=== PATIENT | female | born 1995 | race Caucasian/White ===

== ENCOUNTER 2017-11-26 13:57 | Emergency (ER) | payer BC, MEDICAID ==
[2017-11-26] MEDS ORDERED: Acetaminophen TAB* 325 MG PO ONE (15:04)
[2017-11-26] MEDS ORDERED: Tetan/Diph/Pertus SYR(Tdap)* 0.5 ML SYR(BOOSTRIX) use SYR IM ONE (15:04)
--- NOTE | 2017-11-26 16:17 | ED ---
Skin Complaint - HPI Summary HPI Summary: Lt hand dominant pt here w/ Rt middle finger lac earlier today. Was walking in the kitchen when she slipped and fell, grabbing the edge of the counter nad cutting her finger. Unsure if imms are UTD. Numbness in focal area of lac - otherwise, denies numbness, tingling,weakness. Does not feel she has FB in wound which bled at time of injury -just stopped recently w/ pressure. Has not had anything for pain prior to arrival. CAn't take ibuprofen or she vomits. - History of Current Complaint Chief Complaint: EDLacSutureRecheck Time Seen by Provider: 11/26/17 14:52 Stated Complaint: RT FINGER LAC Hx Obtained From: Patient Hx Last Menstrual Period: 07/28/12 Pain Intensity: 6 - Allergy/Home Medications Allergies/Adverse Reactions: Allergies Allergy/AdvReac Type Severity Reaction Status Date / Time MS Latex [Latex] Allergy Hives Verified 09/24/16 18:33 PMH/Surg Hx/FS Hx/Imm Hx Endocrine/Hematology History: Denies: Hx Diabetes, Hx Thyroid Disease Cardiovascular History: Denies: Hx Hypertension Respiratory History: Denies: Hx Asthma, Hx Chronic Obstructive Pulmonary Disease (COPD) GI History: Denies: Hx Ulcer Musculoskeletal History: Denies: Hx Scoliosis Neurological History: Denies: Hx Headaches, Hx Seizures - self diagnosed "seizure" due to prior episodes of dizziness, passing out., Other Neuro Impairments/Disorders - Surgical History Surgery Procedure, Year, and Place: 2007 - Right knee surgery; plastic - Immunization History Date of Tetanus Vaccine: unsure Infectious Disease History: No Infectious Disease History: Denies: Hx Hepatitis, Hx Human Immunodeficiency Virus (HIV), Traveled Outside the [place] in Last 30 Days - Family History Known Family History: Positive: Cardiac Disease, Diabetes - Social History Alcohol Use: Occasionally Substance Use Type: Reports: None Hx Tobacco Use: Yes Smoking Status (MU): Heavy Every Day Tobacco Smoker Type: Cigarettes Have You Smoked in the Last Year: Yes Physical Exam Vital Signs On Initial Exam: Initial Vitals Temp Pulse Resp BP Pulse Ox 98.7 F 96 20 125/62 98 11/26/17 14:00 11/26/17 14:00 11/26/17 14:00 11/26/17 14:00 11/26/17 14:00 Procedures - Laceration/Wound Repair 1 Location: upper extremity - Rt middle finger, distal pad Description: Irregular - c-shaped w/ jagged edge Anesthesia: Digital, Lido Length, Depth and Shape: 2cm x 3.5mm Betadine Prep?: No Irrigated w/ Saline (ccs): 250 - cleaned with hibaclens and then antiseptic solution Laceration/Wound Explored: clean Closure: Single Layer Suture Type: Nylon - 5-0 Number of Sutures: 5 Layer Closure?: No Sterile Dressing Applied?: Yes - triple anbx ointment + strerile gauze + coban - pt tolerated well Diagnostics - Vital Signs Vital Signs Temp Pulse Resp BP Pulse Ox 11/26/17 14:00 98.7 F 96 20 125/62 98 - Laboratory Lab Statement: Any lab studies that have been ordered have been reviewed, and results considered in the medical decision making process. Course/Dx - Course Course Of Treatment: wound hemodynamically stable - wound care reviewed and danger s/sx of infection. - Diagnoses Provider Diagnoses: Laceration of right middle finger Discharge - Discharge Plan Condition: Stable Disposition: HOME Patient Education Materials: Finger Laceration (ED), Care For Your Stitches (ED ) Referrals: No Primary Care Phys,NOPCP [Primary Care Provider] - Additional Instructions: Keep dressing clean, dry and in place for 48 hours. After this time, you may remove dressing and gently wash the wound with soap and water, pat dry with clean cloth, and reapply triple antibiotic ointment plus clean gauze dressing. Repeat daily. Keep dressing dry and do not soak finger. Follow-up with PCP or return to ED in 10-14 days for wound check and suture removal. *If you develop redness, swelling, streaking, purulent drainage, fever, chills in the meantime, return to the ED.
[2017-11-26 16:37] VITALS: BP 99/48
== END 2017-11-26 16:36 | disposition home or self-care (01) ==
LOC: ED 13:57
DX: S61.212A Laceration without foreign body of right middle finger without damage to nail, initial encounter (principal); W01.198A Fall on same level from slipping, tripping and stumbling with subsequent striking against other object, initial encounter; Y93.01 Activity, walking, marching and hiking; Y92.9 Unspecified place or not applicable; F17.210 Nicotine dependence, cigarettes, uncomplicated; Z23 Encounter for immunization
CPT/HCPCS: 12001; 90471; 90715; 99282; A9270-GY

== ENCOUNTER 2018-01-30 09:50 | Emergency (ER) | payer BC ==
--- NOTE | 2018-01-30 10:30 | ED ---
Abdominal Pain/Female - HPI Summary HPI Summary: Patient is a 22-year-old female presenting to the ED with right-sided abdominal pain without nausea or vomiting. She states she may be . She was to have a gallbladder ultrasound, but was unable to schedule this. Denies any constipation, diarrhea. She arrives today with concern for . Denies any vaginal bleeding or discharge. Last menstrual cycle 5 weeks ago. - History of Current Complaint Chief Complaint: EDAbdPain Stated Complaint: ABD PAIN Time Seen by Provider: 01/30/18 09:57 Hx Obtained From: Patient Hx Last Menstrual Period: 07/28/12 ?: No Onset/Duration: Sudden Onset Timing: Constant Severity Initially: Mild Severity Currently: Mild Pain Intensity: 9 Pain Scale Used: 0-10 Numeric Location: Diffuse Radiates: No Character: Dull Aggravating Factor(s): Other: - cough Alleviating Factor(s): Position Associated Signs and Symptoms: Positive: Negative - Risk Factors Ectopic Risk Factor: Negative Ovarian Torsion Risk Factor: Reproductive Age Allergies/Adverse Reactions: Allergies Allergy/AdvReac Type Severity Reaction Status Date / Time latex Allergy Hives Verified 01/30/18 09:53 Latex, Natural Rubber Allergy Hives Verified 01/30/18 09:53 Home Medications: Home Medications NK [No Home Medications Reported] 01/30/18 [History Confirmed 01/30/18] PMH/Surg Hx/FS Hx/Imm Hx Previously Healthy: Yes Endocrine/Hematology History: Denies: Hx Anticoagulant Therapy, Hx Blood Disorders, Hx Diabetes, Hx Thyroid Disease Cardiovascular History: Denies: Hx Hypertension Respiratory History: Denies: Hx Asthma, Hx Chronic Obstructive Pulmonary Disease (COPD) GI History: Denies: Hx Ulcer Musculoskeletal History: Denies: Hx Scoliosis Neurological History: Denies: Hx Headaches, Hx Seizures - self diagnosed "seizure" due to prior episodes of dizziness, passing out., Other Neuro Impairments/Disorders - Surgical History Surgery Procedure, Year, and Place: 2007 - Right knee surgery; plastic - Immunization History Date of Tetanus Vaccine: unsure Hx Pertussis Vaccination: No Immunizations Up to Date: Unable to Obtain/Confirm Infectious Disease History: No Infectious Disease History: Denies: Hx Hepatitis, Hx Human Immunodeficiency Virus (HIV), Traveled Outside the [place] in Last 30 Days - Family History Known Family History: Positive: Cardiac Disease, Diabetes - Social History Occupation: Unemployed Lives: With Family Alcohol Use: Occasionally Hx Substance Use: No Substance Use Type: Reports: None Hx Tobacco Use: Yes Smoking Status (MU): Current Every Day Smoker Type: Cigarettes Have You Smoked in the Last Year: Yes Review of Systems Constitutional: Negative Negative: Fever, Chills, Fatigue, Skin Diaphoresis Negative: Photophobia, Blurred Vision Negative: Epistaxis, Dental Pain Negative: Palpitations, Chest Pain Negative: Shortness Of Breath, Cough Positive: Abdominal Pain. Negative: Vomiting, Diarrhea Genitourinary: Negative Positive: no symptoms reported, see HPI Negative: Arthralgia, Myalgia Neurological: Negative All Other Systems Reviewed And Are Negative: Yes Physical Exam Triage Information Reviewed: Yes Vital Signs On Initial Exam: Initial Vitals Temp Pulse Resp BP Pulse Ox 97 F 110 14 120/82 100 01/30/18 09:54 01/30/18 09:54 01/30/18 09:54 01/30/18 09:54 01/30/18 09:54 Vital Signs Reviewed: Yes Appearance: Positive: Well-Appearing, Well-Nourished Skin: Positive: Warm, Skin Color Reflects Adequate Perfusion Head/Face: Positive: Normal Head/Face Inspection Eyes: Positive: EOMI, DONELL, Conjunctiva Clear Neck: Positive: Supple, No Lymphadenopathy Respiratory/Lung Sounds: Positive: Clear to Auscultation, Breath Sounds Present Cardiovascular: Positive: RRR, Pulses are Symmetrical in both Upper and Lower Extremities Neurological: Positive: Normal, Sensory/Motor Intact, Alert, Oriented to Person Place, Time, Speech Normal Psychiatric: Positive: Normal, Affect/Mood Appropriate AVPU Assessment: Alert Diagnostics - Vital Signs Vital Signs Temp Pulse Resp BP Pulse Ox 01/30/18 09:54 97 F 110 14 120/82 100 - Laboratory Result Diagrams: 01/30/18 10:22 01/30/18 10:22 Lab Statement: Any lab studies that have been ordered have been reviewed, and results considered in the medical decision making process. Abdominal Pain Fem Course/Dx - Course Course Of Treatment: During the course of treatment, the patient is evaluated for right side body pain. Roberts's sign negative. Rovsing and McBurney's point negative. Began with labs to assess for infectious etiology. Shows thrombocytosis as 622 as well as elevated CRP at 132 with a slightly elevated white count at 12. Discussed the case with Dr. Johns who suggests CT abdomen and pelvis with contrast. I discussed with this patient and she is declining at this time. I have been convinced the patient to add on a d-dimer as she is now complaining of right-sided rib pain, worse with inspiration. I am concerned with a PE as d-dimer is elevated, patient is a smoker and heart rate is 110. PERC score is positive as a low probability but requiring further evaluation. D-dimer> 1050. She again is requesting to be discharged. I have stated she would need to leave AMA. She agrees to the CTA chest/abdomen/pelvis however she is refusing to have oral contrast. CTA chest abdomen pelvis shows: IMPRESSION: No evidence of pulmonary embolus is noted. There is a small amount of perihepatic ascites and some inflammatory change along the. right paracolic gutter. There is a tubular fluid structure arising from the cecum but this. may represents bowel rather than a dilated appendix although evaluation is difficult due. to lack of oral contrast. Right ovarian cyst measuring up to 2.4 cm and a moderate degree. of free fluid is noted in the cul-de-sac. Inflammatory process in the right lower quadrant. is not excluded. A normal appendix could not be identified. I have explained to the patient I continue to be unable to discern if she has an appendicitis. Although, Rovsing and McBurney's point negative. No fever and denies nausea vomiting. This is unlikely. However due to the [id number], I have again advised she stayed for a further evaluation of this, but she prefers to follow- up with GI. I have given her GI consult as well as PUBLIC WOR[employer] DIRECTOR consult for the ovarian cyst. She is signing out AMA at this time. - Diagnoses Differential Diagnosis: Positive: Appendicitis, Bowel Obstruction, Constipation , Ovarian Cyst Provider Diagnoses: Abdominal pain Discharge - Sign-Out/Discharge Documenting (check all that apply): Discharge - Discharge Plan Condition: Stable Disposition: ADMITTED TO [facility] Patient Education Materials: Ovarian Cyst (ED), Acute Abdominal Pain (ED) Referrals: Phillip Wharton MD [Medical Doctor] - Kayce Rodriguez NP [Primary Care Provider] - Leonel Gonzalez MD [Medical Doctor] - Additional Instructions: Please follow-up with Dr. Gonzalez regarding the right side ovarian cyst Please follow-up with Dr. Dio for any worsening abdominal pain If you develop fevers, nausea, acute onset right lower quadrant pain, return to the ED immediately! As discussed, we did not obtain a CT with contrast which will better visualize the appendix Your signing out AGAINST MEDICAL ADVICE for this reason Please follow back up with your physician early this week - Billing Disposition and Condition Condition: STABLE Disposition: [facility]
[2018-01-30 10:31] LABS: ABS Basophils 0.1 10^3/ul (0-0.2); ABS Eosinophils 0.1 10^3/ul (0-0.6); ABS Lymphocytes 1.5 10^3/ul (1.0-4.8); ABS Monocytes 1.3 10^3/ul (0-0.8); ABS Nucleated RBC 0 10^3/ul; Eosinophil % 0.7 % (0-6); Hematocrit 40 % (35-47); Lymphocyte % 12.6 % (25-47); Mean Corpuscular HGB Conc 33 g/dl (31-36); Mean Corpuscular Hemoglobin 29 pg (27-31); Mean Corpuscular Volume 88 fL (80-97); Mean Platelet Volume 6.1 um3 (7.4-10.4); Nucleated Red Blood Cells % 0; Platelet Count 622 10^3/ul (150-450); Red Cell Distribution Width 13 % (10.5-15)
[2018-01-30 10:52] LABS: EGFR Non-African American 110.3 (>60)
[2018-01-30] MEDS ORDERED: Iohexol 300* (CONTRAST) 10 ML SDV IV ONE (11:44)
[2018-01-30] MEDS ORDERED: Iohexol 350* (CONTRAST) 500 ML MDV IV ONE (11:54)
--- NOTE | 2018-01-30 13:05 | RAD ---
Indication: Elevated d-dimer, right-sided abdominal pain. Contrast: Administered 80.0 ml of OMNIPAQUE 350 mg/ml CTA of the chest was performed after IV contrast administration. Coronal and sagittal reconstructed images were obtained. CT of the abdomen and pelvis was performed after IV contrast. No oral contrast was administered. The pulmonary arterial tree is well opacified. There are no filling defects present to suggest pulmonary embolus. The thoracic aorta demonstrates no evidence of aneurysmal dilatation. No evidence of aortic dissection is noted. The trachea and major bronchi appear patent. Lung allred demonstrate no evidence of alveolar consolidation, pleural fluid or nodules or masses. There is no evidence of mediastinal or hilar adenopathy. The esophagus is otherwise unremarkable. The axilla demonstrates no evidence of abnormal adenopathy. CT of the abdomen and pelvis demonstrates liver to be normal in size. No focal lesions or intrahepatic ductal dilatation is noted. The spleen is normal in size. The pancreas demonstrates no mass or pancreatic duct dilatation. No adrenal lesions are noted. The kidneys demonstrate symmetric nephrograms without focal lesions. No retroperitoneal lymphadenopathy is noted. There may be a small amount of perihepatic ascites noted. CT of the pelvis demonstrates no retroperitoneal or pelvic lymphadenopathy. Small bowel demonstrates no evidence of abnormal dilatation. Right ovarian cyst measures up to 2.5 cm. Moderate amount of free fluid. There is a tubular structure arising from the inferior difficult to differentiate between distal ileum versus an appendicitis. Lack of oral contrast makes evaluation difficult and function. Clinical correlation is suggested. A normal appendix is not identified. No pelvic masses are identified. No hernias are identified. IMPRESSION: No evidence of pulmonary embolus is noted. There is a small amount of perihepatic ascites and some inflammatory change along the right paracolic gutter. There is a tubular fluid structure arising from the cecum but this may represents bowel rather than a dilated appendix although evaluation is difficult due to lack of oral contrast. Right ovarian cyst measuring up to 2.4 cm and a moderate degree of free fluid is noted in the cul-de-sac. Inflammatory process in the right lower quadrant is not excluded. A normal appendix could not be identified.
[2018-01-30 13:29] VITALS: BP 112/65
== END 2018-01-30 13:27 | disposition short-term general hospital (02) ==
LOC: ED 09:50
DX: R10.9 Unspecified abdominal pain (principal); F17.210 Nicotine dependence, cigarettes, uncomplicated; N83.201 Unspecified ovarian cyst, right side; Z53.29 Procedure and treatment not carried out because of patient's decision for other reasons
CPT/HCPCS: 36415; 71275; 74177; 80053; 82248; 83605; 84702; 85025; 85379; 86140; 96374; 96376; 99282; Q9967

== ENCOUNTER 2019-01-26 03:25 | Emergency (ER) | payer BC, MEDICAID ==
[2019-01-26] MEDS ORDERED: oxyCODONE/Acetamin 5/325 MG* TAB PO ONE (04:01)
[2019-01-26] MEDS ORDERED: Ibuprofen TAB* 800 MG PO ONE (04:01)
[2019-01-26 04:26] VITALS: BP 121/70
--- NOTE | 2019-01-26 06:14 | ED ---
Complex/Multi-Sys Presentation - HPI Summary HPI Summary: The patient is a 23 year old female who is presenting to the [facility] with a chief complaint of a dental pain. The pain is described to be located "behind the jaw " as per patient reports. She also states the pain radiates to areas such as her ear, eye and her scientology. When asked about the dental pain, the patient states that she has a broken tooth and was concerned about possible infection. The symptoms are aggravated by nothing. The symptoms are alleviated by nothing. Pain is rated to be 10/10 in severity. - History Of Current Complaint Chief Complaint: EDDentalPain Time Seen by Provider: 01/26/19 03:52 Hx Obtained From: Patient Onset/Duration: Still Present Timing: Constant Severity Currently: Severe Severity Initially: Severe Aggravating Factor(s): Nothing Alleviating Factor(s): Nothing Associated Signs And Symptoms: Positive: Other - Pain around ear, eye and scientology. - Allergies/Home Medications Allergies/Adverse Reactions: Allergies Allergy/AdvReac Type Severity Reaction Status Date / Time latex Allergy Hives Verified 01/30/18 09:53 Latex, Natural Rubber Allergy Hives Verified 01/30/18 09:53 PMH/Surg Hx/FS Hx/Imm Hx Endocrine/Hematology History: Denies: Hx Anticoagulant Therapy, Hx Blood Disorders, Hx Diabetes, Hx Thyroid Disease Cardiovascular History: Denies: Hx Hypertension Respiratory History: Denies: Hx Asthma, Hx Chronic Obstructive Pulmonary Disease (COPD) GI History: Denies: Hx Ulcer History: Denies: Hx Renal Disease Musculoskeletal History: Denies: Hx Scoliosis Neurological History: Denies: Hx Headaches, Hx Seizures - self diagnosed "seizure" due to prior episodes of dizziness, passing out., Other Neuro Impairments/Disorders - Surgical History Surgery Procedure, Year, and Place: 2007 - Right knee surgery; plastic - Immunization History Date of Tetanus Vaccine: unsure Infectious Disease History: No Infectious Disease History: Denies: Hx Hepatitis, Hx Human Immunodeficiency Virus (HIV), Traveled Outside the [place] in Last 30 Days - Family History Known Family History: Positive: Cardiac Disease, Diabetes - Social History Occupation: Student Alcohol Use: Occasionally Hx Substance Use: No Substance Use Type: Reports: None Substance Use Comment - Amount & Last Used: daily Hx Tobacco Use: Yes Smoking Status (MU): Current Every Day Smoker Type: Cigarettes Have You Smoked in the Last Year: Yes Review of Systems Constitutional: Negative Eyes: Negative Positive: Dental Pain - "Broken Tooth" Cardiovascular: Negative Respiratory: Negative Gastrointestinal: Negative Genitourinary: Negative Musculoskeletal: Other - Jaw pain. Positive: Other - Pain radiating to the eyes, ears and scientology. Skin: Negative Neurological: Negative Psychological: Normal All Other Systems Reviewed And Are Negative: Yes Physical Exam - Summary Physical Exam Summary: VITAL SIGNS: Reviewed. GENERAL: Patient is a well-developed and nourished (FEMALE) who is lying comfortable in the stretcher. Patient is not in any acute respiratory distress. HEAD AND FACE: No signs of trauma. No ecchymosis, hematomas or skull depressions. No sinus tenderness. EYES: PERRLA, EOMI x 2, No injected conjunctiva, no nystagmus. EARS: Hearing grossly intact. Ear canals and tympanic membranes are within normal limits. MOUTH: Broken lost upper molar without rounding inflammatory changes. NECK: Supple, trachea is midline, no adenopathy, no JVD, no carotid bruit, no c- spine tenderness, neck with full ROM. CHEST: Symmetric, no tenderness at palpation LUNGS: Clear to auscultation bilaterally. No wheezing or crackles. CVS: Regular rate and rhythm, S1 and S2 present, no murmurs or gallops appreciated. ABDOMEN: Soft, non-tender. No signs of distention. No rebound no guarding, and no masses palpated. Bowel sounds are normal. EXTREMITIES: FROM in all major joints, no edema, no cyanosis or clubbing. NEURO: Alert and oriented x 3. No acute neurological deficits. Speech is normal and follows commands. SKIN: Dry and warm Triage Information Reviewed: Yes Vital Signs On Initial Exam: Initial Vitals Temp Pulse Resp BP Pulse Ox 98.6 F 71 16 138/73 98 01/26/19 03:56 01/26/19 03:56 01/26/19 03:56 01/26/19 03:56 01/26/19 03:56 Vital Signs Reviewed: Yes Diagnostics - Vital Signs Vital Signs Temp Pulse Resp BP Pulse Ox 01/26/19 04:25 98.6 F 70 17 121/70 99 01/26/19 04:12 18 01/26/19 03:56 98.6 F 71 16 138/73 98 - Laboratory Lab Statement: Any lab studies that have been ordered have been reviewed, and results considered in the medical decision making process. Complex Multi-Symp Course/Dx Course Of Treatment: The patient is a 23 year old female who is presenting to the [facility] with a chief complaint of dental pain. The pain resonates around her jaw, eyes, ears and scientology as per patient report. The physical examination reveals a broken molar in the upper region of the mouth and no inflammatory changes. The patient will be discharged home with a dx of dental pain and broken tooth. We recommended a follow up with the dentist within 1 to 2 days. - Diagnoses Provider Diagnoses: Pain, dental, Broken tooth Discharge - Sign-Out/Discharge Documenting (check all that apply): Patient Departure - Discharge Home Patient Received Moderate/Deep Sedation with Procedure: No - Discharge Plan Condition: Stable Disposition: HOME Prescriptions: Ibuprofen TAB* [Motrin TAB* 800 MG] 800 mg PO Q6H PRN #30 tab PRN Reason: Pain Patient Education Materials: Toothache (ED) Referrals: Kayce Rodriguez, COPY CHIEF [Primary Care Provider] - Additional Instructions: RETURN TO THE EMERGENCY DEPARTMENT FOR CHANGING OR WORSENING SYMPTOMS. FOLLOW UP WITH YOUR DENTIST WITHIN ONE TO TWO DAYS - Attestation Statements Document Initiated by Shaniaibe: Yes Documenting Scribe: Trae Diego Provider For Whom Scribe is Documenting (Include Credential): Dr. Shakira Jaureguiibjacquie Attestation: Trae Romo scribed for Dr. Lacey Martinez on 01/26/19 at 0621. Status of Scribe Document: Ready
== END 2019-01-26 04:25 | disposition home or self-care (01) ==
LOC: ED 03:25
DX: K08.89 Other specified disorders of teeth and supporting structures (principal); S02.5XXA Fracture of tooth (traumatic), initial encounter for closed fracture; F17.210 Nicotine dependence, cigarettes, uncomplicated; X58.XXXA Exposure to other specified factors, initial encounter; Y92.9 Unspecified place or not applicable
CPT/HCPCS: 99282; A9270-GY

== ENCOUNTER 2019-09-20 19:39 | Emergency (ER) | payer BC, MEDICAID ==
--- OUTSIDE RECORDS SUMMARY | 2019-09-20 20:06 | XMS REPORT | Continuity of Care Document ---
:1995 Author Organization [facility] Address [address] [place] [address] Phone Care Team Providers Name Role Phone Enrique OFFICE CLERK ASSISTANTJanene Unavailable Unavailable Allergies, Adverse Reactions, Alerts Substance Reaction Status latex Hives/Skin Rash Active ibuprofen Nausea/Vomiting Active Medications Medication Instructions Dosage Effective Dates Status Comments (start - stop) azithromycin 500 mg Take 2 tabs PO now - Active tablet Nexplanon 68 mg Insert in clinic - Active subdermal implant Problems Condition Effective Dates (start - Clinical Status Comments stop) Chlamydial infection, unspecified Encounter for test, result negative Encntr screen for infections w sexl mode of transmiss Enctr for init prescription of implntbl subdermal contracep Encounter for initial prescription of contraceptive pills Encounter for test, result negative Enctr srvlnc implantable subdermal contraceptive Encounter for test, result negative Enctr for init prescription of implntbl subdermal contracep Encounter for test, result negative Human immunodeficiency virus [HIV] - counseling Encounter for elective termination of Less than 8 weeks gestation of Enctr for init prescription of implntbl subdermal contracep Encounter for elective termination of Human immunodeficiency virus [HIV] - counseling Encounter for test, result positive Body mass index (BMI) 27.0-27.9, adult Encounter for oth general cnsl and advice on contraception Encntr screen for infections w sexl mode of transmiss Less than 8 weeks gestation of PT, Negative RhD positive - Active Procedures Procedure Date No information Results Test Name Date and Time Measure Units Reference Range Abnormal Flag Status Comments No information Advance Directives Directive Yes / No Effective Date File Name No information Encounters Encounter Practice Location Reason(s) Diagnoses Date Provider Providers Description For Visit Copied on Encounter [facility]ydial [facility] [place] infection, Janene. [address] unspecified [address], [place], [place], [place], [address]. [address] tel:[phone] St, [place], [address] [place], [id number], [place] tel:[phone] [facility] Encounter for Christina Referring [facility] [place] test, Saniya. 620 Provider: Southern result [address], Saniya [place] negativeEncntr [place], Christina J, 620 [facility], [facility] [place] [address], [place]. [address] [place] infections w tel:[phone] St, [place], St, [place] [address] [place], [address]. [place], transmissEnctr tel:[phone], for init [id number] [place] prescription of tel:[phone] implntbl [phone] subdermal contracep [facility] [place] initial 3 Diana. [address] W Provider: [place] prescription of [address], Diana [place] contraceptive [place], Raphaelidis [facility], 620 pills [address]. , [address] tel:[phone] [address], St, [place], [address] [place], [address]. [id number], tel:[phone] [place] [phone] tel:[phone] [facility] February- White Brittney. [facility] [place] 0-201 [address], [place], [place], [address], [place], [address] [place], [place], [id number], [place] tel:[phone] [facility] Encounter for Jan-2 Parete Referring [facility] [place] test, 6-201 Janene. 620 W Provider: [place] result negative [address], Janene [place], Parete, 620 [place], 620 [address]. [address] [place] tel:[phone] St, [place], St, [place], [address] [place], [address]. [place], tel:[phone], 754527 [place] tel:[phone] [facility] Enctr srvlnc Apr-1 White Brittney. Referring [facility] [place] implantable 0-201 [address] Provider: [place] subdermal 9 [address], [place], [place], [address], [place], 620 [place], 620 [place]. [address], [place], [place], [place], [address]. [place], [id number], [place] tel:[phone] [facility] Encounter for Apr- Parete Referring [facility] [place] test, 7-201 Janene. 620 W Provider: [place] result [address], Janene [place] negativeEnctr [place], [facility], 620 [facility], 620 for init [address]. [place] prescription of tel:+[phone] St, [place], St, [place], [place] [address] [place], [address]. [place], subdermal tel:[phone], contracep [phone] [place] tel:[phone] [facility] Encounter for Apr-0 Rhina Referring [facility] [place] test, 5-201 Sophia. 620 W Provider: [place] result [address], Sophia [place] negativeHuman [place], [place], Rhina [facility], 620 immunodeficienc [address]. M, [address] y virus [HIV] tel:[phone], St, [place], counseling [address] [facility] [place], [address]. [id number], tel:[phone] [place] [phone] tel:[phone] [facility] Encounter for Dec-0 Angie Referring [facility] [place] elective 8-201 Ella. 620 W Provider: [place] termination of [address], Ella [place] pregnancyLess [place], [place], Angie R, [facility], 620 than 8 weeks [address]. [address] gestation of tel:+[phone], [facility] [place], pregnancyEnctr [address] [place], [place], [place], for init [address]. [id number], prescription of tel:[phone] [place] implntbl 295319 tel:[phone] subdermal [phone] contracep [facility] Encounter for Renaldo Lugo. [facility] [place] elective [address] termination of 7 , [place], [place], [address], [place], 620 [place]. [address] , [place], [place], [id number], [place] tel:[phone] [facility] Human Renaldo Lugo. [facility] [place] immunodeficienc 0-201 [address] [facility] virus [[facility]] 7 , [place], [place], [address], [facility], 620 nter for [place]. [address] [place] test, [facility], [place], result [place], positiveBody [id number], mass index [place] (BMI) tel:[phone] 27.0-27.9, [phone] adultEncounter for oth general cnsl and advice on contraceptionEn cntr screen for infections w sexl mode of transmissLess than 8 weeks gestation of [facility] PT, Negative [employer] [facility] [place] 6201 Lana. 620 W Provider: [address], NURSE [place], [place], [facility]. [place] [address]. [address] [place] tel:+[phone] , [place], [address] [place], [id number], [place] tel:[phone] Family History Family Member Diagnosis Age At Onset 1st degree relative No hx of cancer of breast, colon, endometrium or ovary 1st degree relative No hx of venous thromboembolism 1st degree relative No hx of coronary heart disease (female <65, male <55) Immunizations Vaccine Date Status Comments HPV, unspecified formulation administered Note: [place] CONFIRMED ; Source: Public Agency Payers Payer name Insurance type Covered green party ID Authorization(s) [facility] [id number] Medicaid [place] [id number] Social History Type Description Quantity Date Captured Comments Alcohol Use Details Unknown Caffeine Use Details Unknown Tobacco Use Status Smoking Status Heavy tobacco smoker Sex Female Vital Signs Date / Height Weight BMI Pulse Blood Temperature Respiratory Body Head BMI Pulse Inhaled Time: Rate Pressure Rate Surface Circumference percentile [place] No information Chief Complaint And Reason For Visit No information Reason For Referral Reason For Referral No information Plan Of Treatment Date Type Action Status Goal Tobacco cessation counseling completed Goal Tobacco cessation counseling completed Goal Tobacco cessation counseling completed Appointment CHEO SHANNON BOOKED History Of Present Illness Encounter Date Complaint History Of Present Illness No information Functional Status Date Functional Assessment No information Medications Administered Medication Instructions Dosage Effective Dates (start - stop) Status Comments No information Instructions Date Instruction Additional Information No information Assessments Type Assessment Date assessment Chlamydial infection, unspecified Goals Health Concern Goal Type Priority Status Date No information Medical Equipment Description Device [place] Device Identifier Effective Dates (start - stop ) Status No information Mental Status Date Cognitive Assessment No information Health Concerns Observation Date No information Concern Status Date No information
--- OUTSIDE RECORDS SUMMARY | 2019-09-20 20:06 | XMS REPORT | Continuity of Care Document ---
:1995 Author Organization [facility] Address [address] [place] [address] Phone Care Team Providers Name Role Phone Maggie Stokes Unavailable Unavailable Allergies, Adverse Reactions, Alerts Substance [...] For Visit Copied on Encounter [facility] Nov-0 [facility] [place]. [address], [place], [place], [facility], 620 [address], [place]. [place] tel:[phone] St, [place], [address] [place], [id number], [place] tel:[phone] [facility] Chlamydial Nov-0 [facility]te [facility] [place] infection, Janene. [address] unspecified [address], [place], [place], [facility], 620 [address]. [address] [place] tel:[phone] St, [place], [address] [place], [id number], [place] tel:[phone] [facility] Encounter for Christina Referring [facility] [place] test, Saniya. 620 Provider: [place] result [address], Saniya [place] negativeEncntr [place], [place], Christina J, 620 [facility], 620 [place] [address], [place]. [address] [place] [place] [address] infections w tel:[phone] St, [place], St, [place] [address] [place], [address]. [place], transmissEnctr tel:[phone], for init 828037 [place] prescription of tel:[phone] implntbl [phone] subdermal contracep [facility] [place] initial Diana. 620 W Provider: [place] prescription of [address], Diana [place] contraceptive [place], Raphaelidis [facility], 620 pills [address]. , [address] tel:[phone], St, [place], [address] [place], [address]. [id number], tel:[phone] [place] [phone] tel:[phone] [facility] February- Renaldo Lugo. [facility] [place] 0-201 [address], [place], [place], [address], [place], [address] [place], [place], [place], [id number], [place] tel:[phone] [facility] Encounter for Jan- Parete Referring [facility] [place] test, [employer]. 620 W Provider: [place] result negative [address], Janene [place], [place], Parete, 620 [place], 620 [address]. [address] [place] [place] tel:[phone] St, [place], St, [place], [address] [place], [address]. [place], tel:[phone], 860[address] [place] tel:[phone] [facility] Enctr srvlnc Renaldo Lugo. Referring [facility] [place] implantable 0- 620 [address] Provider: [place] subdermal [address], [place], [place], [address], White, 620 [place], 620 [place]. [address] [place], [place], St, [place], [address]. [place], [id number], [place] tel:[phone] [facility] Encounter for Parete Referring [facility] [place] test, [employer]. 620 W Provider: [place] result [address], Janene [place] negativeEnctr [place], [facility], 620 [facility], [facility] for init [address]. [address] [place] [place] [address] [place] prescription of tel:[phone] St, [place], St, [place], [place] [address] [place], [address]. [place], subdermal tel:[phone], contracep 816084 [place] tel:[phone] [facility] Encounter for Jan-0 Rhina Referring [facility] [place] test, 5 Sophia. 620 W Provider: [place] result [address], Sophia [place] negativeHuman [place], Rhina [place], 620 immunodeficienc [address]. M, [address] y virus [HIV] tel:+[phone] [address], St, [place], counseling [address] [place], [address]. [id number], tel:[phone] [place] [phone] tel:[phone] [facility] Encounter for Dec-0 Angie Referring [facility] [place] elective 8- Ella. 620 W Provider: [facility] termination of [address], Ella [place] pregnancy[place], [place], Mitch Hansen, [facility] than 8 weeks [address]. [address] gestation of tel:[phone], , [place], pregnancyEnctr [address] [place], [place], [place], for init [address]. [id number], prescription of tel:+[phone] [place] implntbl 229417 tel:[phone] subdermal [phone] contracep [facility] Encounter for Sep-0 Renaldo Lugo. [facility] [place] elective 7 [address] termination of 7 [address], [place], [place], [address], [facility], [address] [place], [place], [id number], [place] tel:[phone] [facility] Human Nov-3 Renaldo Lugo. [facility] [place] immunodeficienc 0-201 [address] y virus [HIV] 7 , [place], [place], [address], [facility], 620 nter for [place]. [address] test, , [place], result [place], positiveBody [id number], mass index [place] (BMI) tel:[phone] 27.0-27.9, 358803 adultEncounter for oth general cnsl and advice on contraceptionEn cntr screen for infections w sexl mode of transmissLess than 8 weeks gestation of [facility] PT, Negative Tyrese- [employer] [facility] [place] 6- Lana. 620 W Provider: [facility] [address], NURSE [place], [place], [facility]. [facility], [facility] [address]. [address] [place] [place] tel:+[phone] St, [place], [address] [place], [id number], [place] tel:[phone] Family History Family Member Diagnosis Age At [...] Insurance type Covered green party ID Authorization(s) [facility] [id number] Medicaid MC [id number] Social History Type Description Quantity Date Captured [...] Information No information Assessments Type Assessment Date No information Goals Health Concern Goal Type Priority Status Date No information Medical Equipment Description Device [place] Device Identifier Effective Dates (start - stop ) Status No information Mental Status Date Cognitive Assessment No information Health Concerns Observation Date No information Concern Status Date No information
--- OUTSIDE RECORDS SUMMARY | 2019-09-20 20:06 | XMS REPORT | Continuity of Care Document ---
:1997 Author Organization 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 Unavailable Unavailable Allergies, Adverse Reactions, Alerts Substance Reaction Status latex Hives/Skin Rash Active ibuprofen Nausea/Vomiting Active Medications Medication Instructions Dosage Effective Dates Status Comments (start - stop) Nexplanon 68 mg Insert in clinic - Active subdermal implant azithromycin 500 mg 2 tabs po x 1 for - No Longer tablet infection Active Problems Condition Effective Dates (start - Clinical Status Comments stop) Encntr screen for infections w sexl mode of transmiss Chlamydial infection, unspecified Human immunodeficiency virus [HIV] - counseling Encounter for screening for human - immunodeficiency virus Chlamydial infection, unspecified Encounter for test, result [...] mass index (BMI) 27.0-27.9, adult Encounter for ot general cnsl and advice on contraception Encntr [...] For Visit Copied on Encounter [facility] [place] Brittney. [facility] [place] 0-201 [address], [place], [place], [address], [place], [address], [place], [place], [id number], [place] tel:[phone] [facility] Encntr screen [facility] 6 Diana. 620 W Provider: [facility] w sexl mode of [address], Diana [place] transmissChlamy [place], [place], Raphaelidis [facility], 620 dial infection, [address]. , [address] unspecifiedHuma tel:[phone], [place], [place] [address] [place], [place], [place], immunodeficienc [address]. [id number], y virus [HIV] tel:[phone] [place] counselingEncou 861847 tel:[phone] nter for 924165 screening for human immunodeficienc y virus [facility] Chlamydial Nov0 P[facility]te [facility] [place] infection, 5 Janene. [address], [place], [place], [place], [address]. [address] [place] tel:[phone] St, [place], [address] [place], [id number], [place] tel:[phone] [facility] Encounter for Christina [facility], [facility]-201 Saniya. 620 Provider: [place] result [address], Saniya [place] negativeEncntr [place], [place], Christina J, 620 [place], 620 [place] for [address], [place]. [address] [place] infections w tel:[phone] St, [place], St, [place], [place] [address] [place], [address]. [place], transmissEnctr tel:[phone], for init 879811 [place] prescription of tel:[phone] implntbl [phone] subdermal contracep [facility] Encounter for Raphaelidis Referring [facility] [place] initial 3-201 Diana. 620 W Provider: [place] prescription of [address], Diana [place] contrace[place], Raphaelidis [place], 620 pills [address]. , [address] [place] tel:[phone], St, [place], [address] [place], [address]. [id number], tel:[phone] [place] 583668 tel:[phone] [facility] February- Renaldo Lugo. [facility] [place] 0-201 [address], [place], [place], [address], [place], [address], [place], [place], [id number], [place] tel:[phone] [facility] Encounter for Jan- Parete Referring [facility] [place] test, [employer]. 620 W Provider: [facility] result negative [address], Janene [place], [place], Parete, 620 [place], 620 [address]. [address] [place] [address] [place] tel:+[phone] St, [place], St, [place], [address] [place], [address]. [place], tel:[phone], [address] [place] tel:[phone] [facility] Enctr srvlnc Apr- Renaldo Lugo. Referring [facility] [place] implantable 0-201 [address] Provider: [place] subdermal 9 [address], [place], [place], [address], White, 620 [place], 620 [place]. [address], [place], [place], [place], [address]. [place], [id number], [place] tel:[phone] [facility] Encounter for Parete Referring [facility] [place] test, 7-201 Janene. 620 W Provider: [place] result [address], Janene [place] negativeEnctr [place], [place], Parete, 620 [place], 620 for init [address]. [address] [place] prescription of tel:[phone] St, [place], St, [place], [place] [address] [place], [address]. [place], subdermal tel:[phone], contracep [phone] [place] tel:[phone] [facility] Encounter for Apr-0 Rhina Referring [facility] [place] test, 5-201 Sophia. 620 W Provider: Southern result [address], Sophia [place] negativeHuman [place], [place], Rhina [facility], 620 immunodeficienc [address]. M, [address] y virus [HIV] tel:[phone] St, [place], counseling [address] [place], [address]. [id number], tel:[phone] [place] 371774 tel:[phone] [facility] Encounter for Dec-0 Angie Referring [facility] [place] elective 8-201 Ella. 620 W Provider: [place] termination of [address], Ella [place] pregnancyLess [place], Angie R, [facility], 620 than 8 weeks [address]. [address] [address] gestation of tel:[phone], St, [place], pregnancyEnctr [address] [place], [place], [place], [place] init [address]. [id number], prescription of tel:[phone] [place] implntbl 873915 tel:[phone] subdermal [phone] contracep [facility] Encounter for Dec-0 White Brittney. [facility] [place] elective 7-201 [address] termination of [address], [place], [place], [address], [place], [address], [place], [place], [id number], [place] tel:[phone] [facility] Human Nov-3 White Brittney. [facility] [place] immunodeficienc 0-201 [address] y virus [HIV] 7 St, [place], [place], [address], [place], 620 nter for [place]. [address] test, St, [place], result [place], positiveBody [id number], mass index [place] (BMI) tel:+[phone] 27.0-27.9, 193146 adultEncounter for oth general cnsl and advice on contraceptionEn cntr screen for infections w sexl mode of transmissLess than 8 weeks gestation of [facility] PT, Negative [employer] [facility] [place] 6-201 Lana. 620 W Provider: [address], [place]SE [place], [place], [facility]. [place], 620 [address]. [address] [place] tel:+[phone] , [place], [address] [place], [id number], [place] tel:[phone] Family History Family Member Diagnosis Age At [...] Agency Payers Payer name Insurance type Covered libertarian ID Authorization(s) [facility] [id number] Medicaid MC [id number] Social History Type Description Quantity Date Captured [...] counseling completed Goal Tobacco cessation counseling completed History Of Present Illness Encounter Date Complaint History Of Present Illness No information Functional Status Date Functional Assessment No information Medications Administered Medication Instructions Dosage Effective Dates (start - stop) Status Comments No information Instructions Date Instruction Additional Information No information Assessments Type Assessment Date No information Goals Health Concern Goal Type Priority Status Date No information Medical Equipment Description Device [place] Device Identifier Effective Dates (start - stop ) Status No information Mental Status Date Cognitive Assessment No information Health Concerns Observation Date No information Concern Status Date No information
--- OUTSIDE RECORDS SUMMARY | 2019-09-20 20:06 | XMS REPORT | Continuity of Care Document ---
:[address] [facility] Address [address] [place] [address] Phone Care Team Providers Name Role Phone Saniya Vasquez NP Unavailable Unavailable Allergies, Adverse Reactions, Alerts Substance Reaction Status latex Hives/Skin Rash Active ibuprofen Nausea/Vomiting Active Medications Medication Instructions Dosage Effective Dates Status Comments (start - stop) Nexplanon 68 mg Insert in clinic - Active subdermal implant Jolessa 0.15 take 1 tablet by 1.00 tablet - No Longer mg-30 mcg oral route every Active tablets,3 month day dose pack Problems Condition Effective Dates (start - Clinical Status Comments stop) Encounter for test, result negative Encntr screen [...] RhD positive - Active Procedures Procedure Date URINE TEST IMPLANON/NEXPLANON INSERT DRUG IMPLANT DEVICE N.GONORRHOEAE, DNA, AMP PROB CHYLMD DNA, AMP PROBE BLOOD PRESSURE Height/Weight Contraceptive Surveillance Officer.Svc. Other Surveillance Officer.Svc. STI Results Test Name Date and Time Measure Units Reference Range Abnormal Flag Status Comments Panel Description: High Sensitivity Urine Test Final High Sensitivity Urine 13:40:13 NegativeInternal Quality Final Test Control: Positive Advance Directives Directive Yes / No Effective Date File Name No information Encounters Encounter Practice Location Reason(s) Diagnoses Date Provider Providers Description For Visit Copied on Encounter [facility] Encounter for [facility] [place] Insertion test, Saniya. 620 Provider : [facility] (chief result [address], Saniya [place] complaint) negativeEncntr [place], Christina J, [address] [place], 620 [place] [address], [place]. [place] infections w tel:[phone] St, [place], St, [place], [place] [address] [place], [address]. [place], transmissEnctr tel:[phone], for init 833277 [place] prescription of tel:[phone] implntbl [phone] subdermal contracep [facility] Encounter for Raphbill [facility]erring [facility] [place] initial 3201 Diana. 620 W Provider: [place] prescription of [address], Diana [place] contraceptive [place], [place], Raphaelyolanda [facility], 620 pills [address]. , [address] tel:[phone], St, [place], [address] [place], [place], [address]. [id number], tel:[phone] [place] 366914 tel:[phone] [facility] February- Renaldo Lugo. [facility] [place] 0-201 [address], [place], [place], [address], [place], [address], [place], [place], [id number], [place] tel:[phone] [facility] Encounter for Jan-2 Parete [facility]erring [facility] [place] test, 6 Janene. 620 W Provider: [place] result negative [address], Janene [place], [place], Parete, 620 [place], 620 [address]. W [place] W [place] tel:[phone] St, [place], St, [place], [address] [place], [address]. [place], tel:[phone], [phone] [place] tel:[phone] [facility] Enctr srvlnc Renaldo Lugo. Referring [facility] [place] implantable 0-201 [address] Provider: Southern subdermal [address], [place], [place], [address], White, 620 [place], [address] [place], [place], St, [place], [address]. [place], [id number], [place] tel:[phone] [facility] Encounter for Apr- Parete [facility]erring [facility] [place] test, [employer]. 620 W Provider: [place] result [address], Janene [place] negativeEnctr [place], [place], [facility], 620 [facility], 620 for init [address]. W [place] prescription of tel:[phone] St, [place], St, [place], [place] [address] [place], [address]. [place], subdermal tel:[phone], contracep [phone] [place] tel:[phone] [facility] Encounter for Apr-0 Rhina [facility]erring [facility] [place] test, 5 Sophia. 620 W Provider: [place] result [address], Sophia [place] negativeHuman [place], [place], Rhina [place], 620 immunodeficienc [address]. M, [address] y virus [HIV] tel:[phone], St, [place], counseling [address] [place], [address]. [id number], tel:[phone] [place] [phone] tel:[phone] [facility] Encounter for Dec-0 Angie Referring [facility] [place] elective 8 Ella. 620 W Provider: [facility] termination of [address], Ella [place] pregnancyLess [place], [place], Angie R, [facility], 620 than 8 weeks [address]. [address] gestation of tel:[phone], [facility], pregnancyEnctr [address] [place], [place], [place], for init [address]. [id number], prescription of tel:[phone] [place] implntbl [phone] tel:[phone] subdermal [phone] contracep [facility] Encounter for Sep-0 Renaldo Lugo. [facility] [place] elective [address] [place] termination of [address], [place], [place], [address], [facility], [address], [place], [place], [id number], [place] tel:[phone] [facility] Human Nov-3 Renaldo Lugo. [facility] [place] immunodeficienc 0-201 [address] [place] y virus [HIV] 7 , [place], [place], [address], [facility], 620 nter for [place]. W [place] test, , [place], result [place], positiveBody [id number], mass index [place] (BMI) tel:[phone] 27.0-27.9, [phone] adultEncounter for oth general cnsl and advice on contraceptionEn cntr screen for infections w sexl mode of transmissLess than 8 weeks gestation of [facility] PT, Negative [employer] [facility] [place] 6-201 Lana. 620 W Provider: [facility] [address], NURSE [place], [place], [facility]. [place] [address]. W [place] tel:[phone] St, [place], [address] [place], [id number], [place] tel:[phone] Family History Family Member Diagnosis Age At [...] Agency Payers Payer name Insurance type Covered alliance party ID Authorization(s) BCBS [facility] [id number] Medicaid [id number] Social History Type Description Quantity Date Captured Comments Alcohol Use Details Unknown Caffeine Use Details Unknown Tobacco Use Status Smoking Status Heavy tobacco smoker Sex Female Vital Signs Date / Height Weight BMI Pulse Blood Temperature Respiratory Body Head BMI Pulse Inhaled Time: Rate Pressure Rate Surface Circumference percentile Ox Ox Area 64.00 165.00 28.3 in lbs 2 mm[Hg] 1:30 kg/m PM eter (2) Chief Complaint And Reason For Visit Most recent encounter only, dated '08/10/2019 13:00'. Implant Insertion ( chief complaint) Reason For Referral Reason For Referral No [...] No information Assessments Type Assessment Date assessment Encounter for test, result negative assessment Encntr screen for infections w sexl mode of transmiss assessment Enctr for init prescription of implntbl subdermal contracep Goals Health Concern Goal Type Priority Status Date No information Medical Equipment Description Device [place] Device Identifier Effective Dates (start - stop ) Status No information Mental Status Date Cognitive Assessment No information Health Concerns Observation Date No information Concern Status Date No information
--- OUTSIDE RECORDS SUMMARY | 2019-09-20 20:06 | XMS REPORT | Continuity of Care Document ---
:[address] [facility] Address [address] [place] [address] Phone Care Team Providers Name Role Phone Saniya Vasquez NP Unavailable Unavailable Allergies, Adverse Reactions, Alerts Substance Reaction Status latex Hives/Skin Rash Active ibuprofen Nausea/Vomiting Active Medications Medication Instructions Dosage Effective Dates (start Status Comments - stop) Nexplanon 68 mg Insert in [...] For Visit Copied on Encounter [facility] [place] 4-201 Saniya. 620 Southern [address], [place], [place], [place], 620 [address], [place]. [place] tel:[phone] St, [place], [address] [place], [id number], [place] tel:[phone] [facility] Encounter for Christina [facility]erring [facility] [place] test, Saniya. 620 Provider: [place] result [address], Saniya [place] negativeEncntr [place], [place], Christina J, 620 [place], 620 [place] [address], [place]. [place] infections w tel:[phone] St, [place], St, [place], [place] [address] [place], [address]. [place], transmissEnctr tel:[phone], for init 778817 [place] prescription of tel:[phone] implntbl [phone] subdermal contracep [facility] Encounter for Raphjamesidis Referring [facility] [place] initial 3 Diana. 620 W Provider: [place] prescription of [address], Diana [place] contraceptive [place], [place], Raphaelidis [facility], 620 pills [address]. , [address] W [address] [place] tel:[phone], St, [place], [address] [place], [address]. [id number], tel:[phone] [place] 002013 tel:[phone] [facility] February- White Brittney. [facility] [place] 0-201 [address] [place] [address], [place], [place], [address], [place], [address] [place], [place], [place], [id number], [place] tel:[phone] [facility] Encounter for Jan- Parete Referring [facility] [place] test, Janene. 620 W Provider: Southern result negative [address], Janene [place], [place], Parete, 620 [place], 620 [address]. [address] [place] tel:[phone] St, [place], St, [place], [address] [place], [address]. [place], tel:[phone], 55[address] [place] tel:[phone] [facility] Enctr srvlnc Apr- White Brittney. Referring [facility] [place] implantable 0-201 620 [address] [place] Provider: Southern subdermal 9 [address], [place], [place], [address], White, 620 [place], 620 [place]. [address] [place] [address], [place], [place], [place], [address]. [place], [id number], [place] tel:[phone] [facility] Encounter for Parete Referring [facility] [place] test, 7-201 Janene. 620 W Provider: [place] result [address], Janene [place] negativeEnctr [place], [facility] 620 [facility], 620 for init [address]. W [place] prescription of tel:[phone] St, [place], St, [place], [place] [address] [place], [address]. [place], subdermal tel:[phone], contracep 254198 [place] tel:[phone] [facility] Encounter for Apr-0 Rhina Referring [facility] [place] test, 5-201 Sophia. 620 W Provider: [place] result [address], Sophia [place] negativeHuman [place], [place], Rhina [facility], 620 immunodeficienc [address]. M, 620 W [address] [place] y virus [HIV] tel:[phone] [place] [address] [place] [address], St, [place], counseling [address] [place], [address]. [id number], tel:[phone] [place] [phone] tel:[phone] [facility] Encounter for Dec-0 Angie Referring [facility] [place] elective 8-201 Ella. 620 W Provider: [place] termination of [address], Ella [place] pregnancyLess [place], [place], Angie Martinez [facility], [facility] than 8 weeks [address]. 620 W [address] [place] gestation of tel:[phone], St, [place], pregnancyEnctr [address] [place], [place], [place], [place] init [address]. [id number], prescription of tel:[phone] [place] implntbl 624601 tel:[phone] subdermal [phone] contracep [facility] Encounter for Renaldo Lugo. [facility] [place] elective 620 [address] [place] Southern termination of [address], [place], [place], [address], [facility], [address] [place], [place], [place], [id number], [place] tel:[phone] [facility] Human Nov-3 Renaldo Lugo. [facility] [place] immunodeficienc 0- 620 [address] [place] Southern y virus [HIV] 7 St, [place], [place], [address], [place], 620 nter for [place]. W [place] test, [facility], [place], result [place], positiveBody [id number], mass index [place] (BMI) tel:[phone] 27.0-27.9, [phone] adultEncounter for oth general cnsl and advice on contraceptionEn cntr screen for infections w sexl mode of transmissLess than 8 weeks gestation of [facility] PT, Negative [employer] [facility] [facility] [place] 6 Lana. 620 W Provider: [facility], NURSE OR KAREN [place], [place], [facility]. [facility], [facility] [address]. W [place] tel:+[phone] , [place], [address] [place], [id number], [place] tel:[phone] Family History Family Member Diagnosis Age At [...] Insurance type Covered green party ID Authorization(s) [facility] [id number] Medicaid MC [id number] Social History Type Description Quantity Date Captured [...] Date No information Medical Equipment Description Device Eight [place] Device Identifier Effective Dates (start - stop ) Status No information Mental Status Date Cognitive Assessment No information Health Concerns Observation Date No information Concern Status Date No information
--- OUTSIDE RECORDS SUMMARY | 2019-09-20 20:06 | XMS REPORT | Continuity of Care Document ---
:1995 Author Organization [facility] Address [address] [place] [address] Phone Care Team Providers Name Role Phone Jenaro TIERNEY, Diana Unavailable Unavailable Allergies, Adverse Reactions, Alerts Substance Reaction Status latex Hives/Skin Rash Active ibuprofen Nausea/Vomiting Active Medications Medication Instructions Dosage Effective Dates Status Comments (start - stop) azithromycin 500 mg 2 tabs po x 1 for - Active tablet infection Nexplanon 68 mg Insert in clinic - Active subdermal implant azithromycin 500 mg Take 2 tabs PO now - No Longer tablet Active Problems Condition Effective Dates (start - [...] RhD positive - Active Procedures Procedure Date Syphilis TRICHOMONAS VAGIN, DIR PROBE OFFICE/OUTPATIENT VISIT, EST ROUTINE VENIPUNCTURE PREVENTIVE COUNSELING, 8-14 Minutes HIV-1/HIV-2, SINGLE ASSAY OTHER Medical Services Manager Science.Svc. STI CHLAMYDIA [place] AZITHROMYCIN 500 MG #2 AZITHROMYCIN EPT 500 MG #2 Results Test Name Date and Time Measure Units Reference Range Abnormal Flag Status Comments No information Advance Directives Directive Yes / No Effective Date File Name No information Encounters Encounter Practice Location Reason(s) Diagnoses Date Provider Providers Description For Visit Copied on Encounter OFFICE/OUTPA [facility] STI Encntr screen Jenaro Referring TIENT VISIT, [facility] [place] Testing No for infections Diana. 620 W Provider: EST [place] Symptoms w sexl mode of [address], Diana [place] (F) (chief transmissChlamy [place], [place], Jenaro [facility], 620 complaint) dial infection, [address]. , [address] unspecifiedHuma tel:[phone] [address], [place], [place] [address] [place] [address]. [id number], y virus [HIV] tel:+[phone] [place] counselingEncou 945050 tel:[phone] nter for [id number] screening for human immunodeficienc y virus [facility] Chlamydial Nov- Parete [facility] [place] infection, 5. 620 W [place] unspecified [address], [place], [place], [place], 620 [address]. W [place] tel:[phone] St, [place], [address] [place], [id number], [place] tel:[phone] [facility] Encounter for Oct Christina Referring [facility] [place] test, 1 Saniya. 620 Provider: Southern result [address], Saniya [place] negativeEncntr [place], [place], Christina J, 620 [place], 620 [place] [address], [place]. [place] infections w tel:[phone] St, [place], St, [place], [place] [address] [place], [address]. [place], transmissEnctr tel:[phone], for init 129424 [place] prescription of tel:[phone] implntbl [phone] subdermal contracep [facility] Encounter for Raphaelidis Referring [facility] [place] initial 3- Diana. 620 W Provider: [place] prescription of [address], Diana [place] contraceptive [place], Raphaelidis [place], 620 pills [address]. , 620 W [address] [place] tel:[phone] [address], St, [place], [address] [place], [address]. [id number], tel:[phone] [place] 699113 tel:[phone] [facility] February- Renaldo Lugo. [facility] [place] 0- 620 [address], [place], [place], [address], [place], [address], [place], [place], [id number], [place] tel:[phone] [facility] Encounter for Jan-2 Parete Referring [facility] [place] test, 6 Janene. 620 W Provider: Southern result negative [address], Janene [place], [place], Parete, 620 [place], 620 [address]. [address] [place] tel:[phone] St, [place], St, [place], [address] [place], [address]. [place], tel:[phone], 68[address] [place] tel:[phone] [facility] Enctr srvlnc Jan- Renaldo Lugo. Referring [facility] [place] implantable 0- 620 [address] [place] Provider: Southern subdermal [address], [place], [place] [address], White, 620 [place], 620 [place]. [address] [place] [address], [place], [place], [place], [address]. [place], [id number], [place] tel:[phone] [facility] Encounter for Apr- Parete Referring [facility] [place] test, 7 Janene. 620 W Provider: Southern result [address], Janene [place] negativeEnctr [place], Parete, 620 [facility], 620 for init [address]. [address] [place] prescription of tel:[phone] St, [place], St, [place], [place] [address] [place], [address]. [place], subdermal tel:[phone], contracep [id number] [place] tel:[phone] [facility] Encounter for Apr-0 Rhina Referring [facility] [place] test, 5201 Sophia. 620 W Provider: Southern result [address], Sophia [place] negativeHuman [place], [place], Rhina [facility], 620 immunodeficienc [address]. M, [address] [place] y virus [HIV] tel:[phone], St, [place], counseling [address] [place], [place], [address]. [id number], tel:[phone] [place] 976215 tel:[phone] [facility] Encounter for Dec-0 Angie Referring [facility] [place] elective 8-201 Ella. 620 W Provider: [place] termination of [address], Ella [place] pregnancyLess [place], [place], Angie R, [facility], [facility] than 8 weeks [address]. 620 W [address] [place] gestation of tel:[phone], St, [place], pregnancyEnctr [address] [place], [place], [place], for init [address]. [id number], prescription of tel:[phone] [place] implntbl 172636 tel:[phone] subdermal [phone] contracep [facility] Encounter for Dec-0 White Brittney. [facility] [place] elective 7-201 [address] Southern termination of [address], [place], [place], [address], [facility], [address], [place], [place], [id number], [place] tel:[phone] [facility] Human Nov-3 White Brittney. [facility] [place] immunodeficienc 0-201 [address] [facility] y virus [HIV] 7 , [place], [place], [address], [place], 620 nter for [place]. [place] test, [facility], result [place], positiveBody [id number], mass index [place] (BMI) tel:[phone] 27.0-27.9, [phone] adultEncounter for oth general cnsl and advice on contraceptionEn cntr screen for infections w sexl mode of transmissLess than 8 weeks gestation of [facility] PT, Negative [employer] [facility] [place] 6-201 Lana. 620 W Provider: [address], NURSE [place], [place], [facility]. [place] [phone]. [place] tel:[phone] [facility], [address] [place], [id number], [place] tel:[phone] Family History Family Member Diagnosis Age At [...] Agency Payers Payer name Insurance type Covered democrat ID Authorization(s) [facility] [id number] Medicaid [place] [id number] Social History Type Description Quantity Date Captured Comments Alcohol Use Details Unknown Caffeine Use Unknown Details Tobacco Use Status Smoking Status Heavy tobacco smoker Smoking Tobacco Use Cigarette: No Details Available Cigarette: 10 Cigarettes per day Details Sex Female Vital Signs Date / Height Weight BMI Pulse Blood Temperature Respiratory Body Head BMI Pulse Inhaled Time: Rate Pressure Rate Surface Circumference percentile Ox Ox Area No information Chief Complaint And Reason For Visit Most recent encounter only, dated '08/16/2019 17:00'. STI Testing No Symptoms (F) (chief complaint) Reason For Referral Reason For Referral [...] No information Assessments Type Assessment Date assessment Encntr screen for infections w sexl mode of transmiss assessment Chlamydial infection, unspecified assessment Human immunodeficiency virus [HIV] counseling assessment Encounter for screening for human immunodeficiency virus 2018 Goals Health Concern Goal Type Priority Status Date No information Medical Equipment Description Device [place] Device Identifier Effective Dates (start - stop ) Status No information Mental Status Date Cognitive Assessment Normal Orientation Health Concerns Observation Date No information Concern Status Date No information
[2019-09-20] MEDS ORDERED: HYDROcodone/ACETAMIN 5-325 MG* 1 TAB PO ONE ×2 (20:27→20:28)
[2019-09-20] MEDS ORDERED: Clindamycin CAP* 150 MG PO ONE (20:27)
--- NOTE | 2019-09-20 20:39 | ED ---
Throat Pain/Nasal Congestion - HPI Summary HPI Summary: 24 year old F presenting [facility] accompanied by male public relations supervisor complains of hole in bottom molar on left causing severe intermittent pain since a couple days prior to 09/20/19. Pt says the nerve is showing from the tooth and has had a syncopal episode from the severity of the pain and can't eat because of it as well. Pt reports taking aspirin but it had no effect. Swelling of face, neck, jaw, and trouble talking noted. Denies fever. Tried using Orajel but experienced shooting pains when applied. Has a dentist but is waiting for an insurance change for surgery. Hx of insomnia and depression. NKDA but feels sick from ibuprofen. SHx of smoking, alcohol use, and marijuana use. The patient rates the pain 10/10 in severity. Symptoms aggravated by Orajel and palpitations. Symptoms alleviated by nothing. Medications reviewed and allergies noted. - History of Current Complaint Chief Complaint: EDDentalPain Time Seen by Provider: 09/20/19 19:55 Hx Obtained From: Patient Onset/Duration: Sudden Onset, Lasting Days, Still Present Severity: Severe Associated Signs And Symptoms: Positive: Negative - fever Cough: None - Allergies/Home Medications Allergies/Adverse Reactions: Allergies Allergy/AdvReac Type Severity Reaction Status Date / Time ibuprofen Allergy Nausea And Verified 09/20/19 19:50 Vomiting latex Allergy Hives Verified 01/30/18 09:53 Latex, Natural Rubber Allergy Hives Verified 01/30/18 09:53 PMH/Surg Hx/FS Hx/Imm Hx Endocrine/Hematology History: Denies: Hx Anticoagulant Therapy, Hx Blood Disorders, Hx Diabetes, Hx Thyroid Disease Cardiovascular History: Denies: Hx Hypertension Respiratory History: Denies: Hx Asthma, Hx Chronic Obstructive Pulmonary Disease (COPD) GI History: Denies: Hx Ulcer History: Denies: Hx Renal Disease Musculoskeletal History: Denies: Hx Scoliosis Neurological History: Denies: Hx Headaches, Hx Seizures - self diagnosed "seizure" due to prior episodes of dizziness, passing out., Other Neuro Impairments/Disorders - Surgical History Surgical History: Yes Surgery Procedure, Year, and Place: 2007 - Right knee surgery; plastic - Immunization History Date of Tetanus Vaccine: unsure Infectious Disease History: No Infectious Disease History: Denies: Hx Hepatitis, Hx Human Immunodeficiency Virus (HIV), Traveled Outside the [place] in Last 30 Days - Family History Known Family History: Positive: Cardiac Disease, Diabetes - Social History Alcohol Use: Occasionally Hx Substance Use: No Substance Use Type: Reports: None Substance Use Comment - Amount & Last Used: daily Hx Tobacco Use: Yes Smoking Status (MU): Current Every Day Smoker Type: Cigarettes Have You Smoked in the Last Year: Yes Review of Systems Negative: Fever Positive: Dental Pain - bottom left molar , Other - Swelling of face, neck, jaw , and trouble talking All Other Systems Reviewed And Are Negative: Yes Physical Exam - Summary Physical Exam Summary: Constitutional: Well-developed, Well-nourished, Alert. (-) Distressed Skin: Warm, Dry HENT: Atraumatic, Tooth number 30 with necrotic center, Tenderness with palpation, Surrounding swelling, No woodiness sublingually Eyes: Conjunctiva normal Neck: Musculoskeletal ROM normal neck. (-) JVD, (-) Stridor, (-) Tracheal deviation Cardio: Rhythm regular, rate normal, Heart sounds normal; Intact distal pulses; Radial pulses are 2+ and symmetric. (-) Murmur Pulmonary/Chest wall: Effort normal. (-) Respiratory distress, (-) Wheezes, (-) Rales Abd: Soft, (-) tenderness, (-) Distension, (-) Guarding, (-) Rebound Musculoskeletal: (-) Edema Lymph: (-) Cervical adenopathy Neuro: Alert, Oriented x3 Psych: Mood and affect Normal Triage Information Reviewed: Yes Vital Signs On Initial Exam: Initial Vitals Temp Pulse Resp BP Pulse Ox 98.2 F 88 16 129/80 100 09/20/19 19:46 09/20/19 19:46 09/20/19 19:46 09/20/19 19:46 09/20/19 19:46 Vital Signs Reviewed: Yes Procedures - Sedation Patient Received Moderate/Deep Sedation with Procedure: No Diagnostics - Vital Signs Vital Signs Temp Pulse Resp BP Pulse Ox 09/20/19 19:46 98.2 F 88 16 129/80 100 - Laboratory Lab Statement: Any lab studies that have been ordered have been reviewed, and results considered in the medical decision making process. EENT Course/Dx - Course Course Of Treatment: Patient is here with pain at a necrotic tooth. Patient has no evidence of deep space infection. Patient has been drainable abscess. Patient was started on clindamycin and pain medication. Patient was told she is 14 her dentist as soon as possible to get this taken care of she will have chronic pain until her tooth is fixed. - Diagnoses Provider Diagnoses: Pain, dental Discharge ED - Sign-Out/Discharge Documenting (check all that apply): Patient Departure - discharge - Discharge Plan Condition: Stable Disposition: HOME Prescriptions: Clindamycin Cap(NF) [Clindamycin Cap 300 mg Cap(NF)] 300 mg PO Q6H 7 Days #28 cap HYDROcodone/ACETAMIN 5-325 MG* [[place] 5-325 TAB*] 1 tab PO Q8H PRN #8 tab MDD 3 tablets PRN Reason: Pain - Severe Patient Education Materials: Toothache (ED) Referrals: Kayce Rodriguez, [facility] [Primary Care Provider] - 3 Days Additional Instructions: PLEASE RETURN TO EMERGENCY DEPARTMENT FOR ANY NEW OR WORSENING SYMPTOMS such as difficulty swallowing, change in voice, and swelling of the face. Please follow up with your dentist within 3 days and start antibiotics. - Billing Disposition and Condition Condition: STABLE Disposition: Home - Attestation Statements Document Initiated by Ruth: Yes Documenting Scribe: Kim Hall Provider For Whom Ruth is Documenting (Include Credential): Dr. Ernesto Fischer MD Scribe Attestation: Kim Romo scribed for Dr. Ernesto Fischer MD on 09/20/19 at 2201. Scribe Documentation Reviewed: Yes Provider Attestation: The documentation as recorded by the Kim walters accurately reflects the service I personally performed and the decisions made by me, Dr. Ernesto Fischer MD Status of Scribe Document: Viewed
[2019-09-20 20:43] VITALS: BP 135/81
== END 2019-09-20 20:45 | disposition home or self-care (01) ==
LOC: ED 19:39
DX: K08.89 Other specified disorders of teeth and supporting structures (principal); F17.210 Nicotine dependence, cigarettes, uncomplicated
CPT/HCPCS: 99282; A9270-GY